=== PATIENT | male | born 1995 | race Two or more races ===

== ENCOUNTER 2021-08-13 21:45 | Emergency (ER) | payer SELFPAY ==
[~2021-08-13] VITALS: Ht 170.2 cm; Wt 86.4 kg
[2021-08-13 22:23] LABS: BASO # 0.1 x10^3/uL (0.0-0.2); BASO % 1 % (0-3); EOS % 0 % (0-3); HEMATOCRIT 43.1 % (39.0-53.0); HEMOGLOBIN 14.5 g/dL (13.0-17.5); LYMPH # 1.3 x10^3/uL (1.0-4.8); LYMPH % 7 % (24-48); MEAN CORPUSCULAR HEMOGLOBIN 31 pg (25-35); MEAN CORPUSCULAR HGB CONC 34 g/dL (31-37); MEAN CORPUSCULAR VOLUME 93 fL (79-100); MONO # 0.7 x10^3/uL (0.0-1.1); MONO % 4 % (0-9); NEUT # 16.3 x10^3/uL (1.8-7.7); NEUT % 89 % (31-73); PLATELET COUNT 319 x10^3/uL (140-400); RED BLOOD COUNT 4.66 x10^6/uL (4.30-5.70); RED CELL DISTRIBUTION WIDTH 13.2 % (11.5-14.5); WHITE BLOOD COUNT 18.5 x10^3/uL (4.0-11.0)
[2021-08-13] MEDS ORDERED: fentaNYL PF VIAL 100 MCG/2 ML VIAL IVP ONE (22:30)
[2021-08-13] MEDS ORDERED: ONDANSETRON PF 4 MG/2 ML VIAL. IVP ONE (22:30)
[2021-08-13 22:35] LABS: CALCIUM 9.2 mg/dL (8.5-10.1); POTASSIUM 3.8 mmol/L (3.5-5.1)
[2021-08-13 22:41] LABS: ALBUMIN 3.8 g/dL (3.4-5.0); ALBUMIN/GLOBULIN RATIO 0.9 (1.0-1.7); TOTAL BILIRUBIN 0.3 mg/dL (0.2-1.0); TOTAL PROTEIN 8.1 g/dL (6.4-8.2)
[2021-08-13 23:07] LABS: BACTERIA,URINE 0 /HPF (0-FEW); RBC,URINE 0 /HPF (0-2); WBC,URINE 20-40 /HPF (0-4)
[2021-08-13] MEDS ORDERED: HYDROmorphone 2 MG/ML INJ. IVP ONE (23:30)
--- NOTE | 2021-08-14 00:18 | RAD ---
Scrotal ultrasound: Reason for examination: Left testicular pain and swelling. Torsion study. The right testicle measures 4.6 x 1.9 x 3.1 cm in greatest dimension. There appears to be normal vasc ular flow. No focal lesions are seen. No abnormality seen at the right epididymis. The left testicle measures 5.0 x 2.1 x 3.1 cm in greatest dimension. This appears to be homogeneous b ut does appear to show some increased vascularity. The left epididymis also appears be prominent at 1 .1 cm with increased vascular flow. No significant hydrocele is evident. IMPRESSION: Increased blood flow present at the left testicle and epididymis suggesting possible epididymitis and orchitis. Electronically signed by: Bhakti Renee MD (08/14/2021 12:15 AM) JOSSELYN
[2021-08-14] MEDS ORDERED: HYDROmorphone 2 MG/ML INJ. IVP ONE (00:30)
[2021-08-14] MEDS ORDERED: cefTRIAXone IV Push 1 GM VIAL. IVP ONE (00:30)
[2021-08-14] MEDS ORDERED: DOXY100C3 PO (01:29)
--- NOTE | 2021-08-14 01:29 | PHYS DOC ---
Past Medical History Past Surgical History: No Surgical History Smoking Status: Current Every Day Smoker Alcohol Use: Occasionally General Adult EDM: Chief Complaint: TESTICULAR PAIN OR INJURY HPI: HPI: Patient is a 26-year-old male who presents to the emergency department with chief complaint of severe left testicular pain. Patient reports he has had mild pain to this testicle over the past week, noticed this morning his pain elevated from a 2-3 out of 10 up to a 10 out of 10. Has been unable to get comfortable all day. States he did take Tylenol about an hour ago without any relief in pain. Patient denies burning with urination, denies seeing blood in his urine, denies urinary pressure, increased urinary frequency, hematuria or other dysuria. Patient denies nausea, vomiting, or diarrhea. Patient denies rashes or lesions to his genitals. Patient reports he does have unprotected sex with a single female sex partner. Patient denies his sex partner complaining of vaginal discharge or other STI type complaints. Patient denies traumatic injury to his testicles. Patient denies other physical complaints or physical marisel rns. Review of Systems: Review of Systems: 14 body systems of review of systems have been reviewed. See HPI for pertinent positives and negative responses, otherwise all other systems are negative, nonpertinent or noncontributory. Constitutional: Negative except as outlined in HPI above. Skin: Negative except as outlined in HPI above. Eyes: Negative except as outlined in HPI above. HENT: Negative except as outlined in HPI above. Respiratory: Negative except as outlined in HPI above. Cardiovascular: Negative except as outlined in HPI above. GI: Negative except as outlined in HPI above. : Negative except as outlined in HPI above. Musculoskeletal: Negative except as outlined in HPI above. Integument: Negative except as outlined in HPI above. Neurologic: Negative except as outlined in HPI above. Endocrine: Negative except as outlined in HPI above. Lymphatic: Negative except as outlined in HPI above. Psychiatric: Negative except as outlined in HPI above. Heart Score: C/O Chest Pain: No Risk Factors: Risk Factors: DM, Current or recent (<one month) smoker, HTN, HLP, family his tory of CAD, obesity. Risk Scores: Score 0 - 3: 2.5% MACE over next 6 weeks - Discharge Home Score 4 - 6: 20.3% MACE over next 6 weeks - Admit for Clinical Observation Score 7 - 10: 72.7% MACE over next 6 weeks - Early Invasive Strategies Current Medications: Current Medications Medications (Trade) Dose Ordered Sig/Raquel Start Time Stop Time Status Last Admin Dose Admin Ceftriaxone Sodium (Rocephin) 1 gm 1X ONCE 08/14/21 00:30 08/14/21 00:31 DC Fentanyl Citrate (Fentanyl 2ml Vial) 75 mcg 1X ONCE 08/13/21 22:30 08/13/21 22:31 DC 08/13/21 22:26 75 MCG Hydromorphone HCl (Dilaudid) 1 mg 1X ONCE 08/14/21 00:30 08/14/21 00:31 DC Ondansetron HCl (Zofran) 4 mg 1X ONCE 08/13/21 22:30 08/13/21 22:31 DC 08/13/21 22:25 4 MG Allergies: Allergies: Allergies Coded Allergies Type Severity Reaction Last Updated Verified No Known Drug Allergies 08/13/21 No Physical Exam: PE: Constitutional: Well developed, well nourished, non-toxic appearance. Patient appears in severe distress, writhing around in the bed. The patient is not diaphoretic. HENT: Normocephalic, atraumatic. Eyes: Conjunctiva normal, no discharge. Neck: Normal range of motion. Cardiovascular: Distal cap refill less than 2 seconds, no cyanosis appreciated. Lungs & Thorax: Patient is in no respiratory distress, no adventitious lung sounds appreciated. Abdomen: Bowel sounds normal, soft, no tenderness, no masses, no pulsatile masses. No bruising or skin discoloration of the abdomen. Skin: Warm, dry, no erythema, no rash. Back: No tenderness, no CVA tenderness. Extremities: No tenderness, no cyanosis, no clubbing, ROM intact, no edema. Neurologic: Alert and oriented X 3, normal motor function, normal sensory function, no focal deficits noted. Psychologic: Affect normal, judgement normal, mood normal. : Genital exam performed with female nurse at bedside for automatic beam warper tender, there are no rashes or lesions to the patient's scrotum or penis, the patient is circumcised, there is no penile discharge, no abnormalities noted with palpation of the right testicle, severe pain to light palpation or support of the left testicle, the cremasteric reflex is negative. There is no scrotal swelling, the left testicle is larger than the right testicle. Unable to palpate epididymis related to patient's pain level. Current Patient Data: Labs: Laboratory Tests Test 08/13/21 22:10 08/13/21 22:28 08/14/21 00:05 White Blood Count 18.5 x10^3/uL (4.0-11.0) H Red Blood Count 4.66 x10^6/uL (4.30-5.70) Hemoglobin 14.5 g/dL (13.0-17.5) Hematocrit 43.1 % (39.0-53.0) Mean Corpuscular Volume 93 fL (79-100) Mean Corpuscular Hemoglobin 31 pg (25-35) Mean Corpuscular Hemoglobin Concent 34 g/dL (31-37) Red Cell Distribution Width 13.2 % (11.5-14.5) Platelet Count 319 x10^3/uL (140-400) Neutrophils (%) (Auto) 89 % (31-73) H Lymphocytes (%) (Auto) 7 % (24-48) L Monocytes (%) (Auto) 4 % (0-9) Eosinophils (%) (Auto) 0 % (0-3) Basophils (%) (Auto) 1 % (0-3) Neutrophils # (Auto) 16.3 x10^3/uL (1.8-7.7) H Lymphocytes # (Auto) 1.3 x10^3/uL (1.0-4.8) Monocytes # (Auto) 0.7 x10^3/uL (0.0-1.1) Eosinophils # (Auto) 0.0 x10^3/uL (0.0-0.7) Basophils # (Auto) 0.1 x10^3/uL (0.0-0.2) Sodium Level 138 mmol/L (136-145) Potassium Level 3.8 mmol/L (3.5-5.1) Chloride Level 102 mmol/L (98-107) Carbon Dioxide Level 24 mmol/L (21-32) Anion Gap 12 (6-14) Blood Urea Nitrogen 10 mg/dL (8-26) Creatinine 1.0 mg/dL (0.7-1.3) Estimated GFR (Cockcroft-Gault) 91.0 BUN/Creatinine Ratio 10 (6-20) Glucose Level 106 mg/dL (70-99) H Calcium Level 9.2 mg/dL (8.5-10.1) Total Bilirubin 0.3 mg/dL (0.2-1.0) Aspartate Amino Transferase (AST) 15 U/L (15-37) Alanine Aminotransferase (ALT) 28 U/L (16-63) Alkaline Phosphatase 94 U/L (46-116) Total Protein 8.1 g/dL (6.4-8.2) Albumin 3.8 g/dL (3.4-5.0) Albumin/Globulin Ratio 0.9 (1.0-1.7) L Urine Collection Type Unknown Urine Color (Auto) Light yellow Urine Turbidity Clear Urine pH (Auto) 7.5 (<5.0-8.0) Urine Specific [place] 1.018 (1.000-1.030) Urine Protein (Auto) Negative mg/dL (Negative) Urine Glucose (Auto)(UA) Negative mg/dL (Negative) Urine Ketones (Auto) Negative mg/dL (Negative) Urine Blood (Auto) Negative (Negative) Urine Nitrite Negative (Negative) Urine Bilirubin (Auto) Negative (Negative) Urine Urobilinogen (Auto) Normal mg/dL (Normal) Urine Leukocyte Esterase (Auto) Moderate (Negative) Urine RBC 0 /HPF (0-2) Urine WBC 20-40 /HPF (0-4) Urine Squamous Epithelial Cells Occ /LPF Urine Bacteria 0 /HPF (0-FEW) Urine Mucus Slight /LPF Lactic Acid Level 0.7 mmol/L (0.4-2.0) Laboratory Tests 08/13/21 22:10 Laboratory Tests 08/13/21 22:10 Vital Signs: Vital Signs Date Time Temp Pulse Resp B/P (MAP) Pulse Ox O2 Delivery O2 Flow Rate FiO2 08/13/21 23:24 Room Air 08/13/21 22:26 26 100 08/13/21 21:50 97.7 112 137/86 (103) 97.7 EKG: EKG: [] Radiology/Procedures: Radiology/Procedures: REASON: Left testicular pain and swelling, torsion study PROCEDURE: TESTICULAR/SCROTUM Scrotal ultrasound: Reason for examination: Left testicular pain and swelling. Torsion study. The right testicle measures 4.6 x 1.9 x 3.1 cm in greatest dimension. There appears to be normal vascular flow. No focal lesions are seen. No abnormality seen at the right epididymis. The left testicle measures 5.0 x 2.1 x 3.1 cm in greatest dimension. This appears to be homogeneous but does appear to show some increased vascularity. The left epididymis also appears be prominent at 1.1 cm with increased vascular flow. No significant hydrocele is evident. IMPRESSION: Increased blood flow present at the left testicle and epididymis suggesting possible epididymitis and orchitis. Electronically signed by: Bhakti Renee MD (08/14/2021 12:15 AM) NABILA Course & Med Decision Making: Course & Med Decision Making Pertinent Labs and Imaging studies reviewed. (See chart for details) 26-year-old male, vital signs reviewed, presents to the emergency department concerning severe left testicular pain. Physical examination concerning for testicular torsion versus epididymitis/orchitis. Will order urinalysis assay, testicular/scrotal ultrasound, IV fentanyl for pain, prophylactic Zofran. CBC, CMP, saline lock. Patient unable to tolerate testicular ultrasound, added 1 mg Dilaudid IV for pain. The patient's white blood cell count is elevated 18.5. Will order lactic acid. The patient's chemistries are negative. The patient's urine did show moderate leukocyte Estrace, there is no hematuria or urine nitrites, 20-40 urine white blood cells, no urine bacteria present. Will prophylactically treat with IV Rocephin, doxycycline p.o. regimen. Scrotal/testicular ultrasound consistent with epididymitis versus orchitis, this is consistent with patient's presentation. Discussed all findings with patient, antibiotic regimen, discussed doxycycline p.o. regimen and side effects, will give prescription for pain medications, strict follow-up with primary care soon, will give referral to urologist. Discussed return to ER precautions and concerns, refrain from sex until symptoms resolve and after antibiotic regimen, discussed with patient consider having partner treated for gonorrhea/chlamydia. Patient gave verbal understanding of and is amenable to ED discharge planning. Discussed with the patient all findings and diagnostic testing as well as the need to follow-up with their primary care provider for further evaluation and treatment or return to the ED if any new or worsening symptoms. Strict return precautions were also discussed at length, the patient voiced understanding and agreement with the discharge planning. The patient was nontoxic in appearance, in no apparent distress, and hemodynamically stable at the time of disposition. Dragon Disclaimer: Dragon Disclaimer: This electronic medical record was generated, in whole or in part, using a voice recognition dictation system. Departure Departure Impression: Primary Impression: Orchitis and epididymitis Disposition: HOME / SELF CARE / HOMELESS Condition: GOOD Referrals: DENNYS BENNETT MD Patient Instructions: Epididymitis, Orchitis Additional Instructions: You were seen today in the emergency department for testicular pain of the left testicle. An ultrasound did reveal an epididymitis and orchitis. As we discussed you were treated with pain medications, 1 g Rocephin IV was given, I am prescribing you doxycycline that you will take twice a day for the next 10 days. Please refrain from sexual activity until all symptoms have resolved, do not have sex until after the antibiotic regimen is completed. I have attached information for a urologist to follow-up with Dr. BENNETT, please make an appointment to see soon if symptoms continue. I have also attached a list of [facility] healthcare providers and clinics free to establish primary care with. As we discussed please consider having your sexual partner treated for gonorrhea/chlamydia. Thank you for visiting our Emergency Department. It was a pleasure taking care of you today in the emergency department and we appreciate you trusting us with your care. If any additional problems come up don't hesita te to return to visit us. Please follow up with your primary care provider so they can plan additional care if needed and know about the problem that you had. If symptoms worsen come back to the Emergency Department. Any concerning symptoms that start such as chest pain, shortness of air, weakness or numbness on one side of the body, running high fevers or any other concerning symptoms return to the ER. [facility] [place] [address] [place] [address] [facility] [address] [place] [address] [facility] [address] [facility] [place] [address] [facility] [address] [place] [address] [facility] [address] [place] [address] Lavelle West [address] [place] [address] [place] [address] Lavellel[address] Dhaliwal [address] [place] [address] [facility] [address] [place] [address] [facility] [address] [place] [address] [facility] [address] [place] [address] Scripts Hydrocodone Bit/Acetaminophen (HYDROCODONE-APAP 5-325 ) 1 Tab Tablet 1 TAB PO PRN Q6HRS PRN for PAIN, #20 TAB 0 Refills Prov: SHANT EASTMAN ALTERATION SPECIALIST 08/14/21 Doxycycline Hyclate (DOXYCYCLINE HYCLATE) 100 Mg Capsule 1 CAP PO BID for orchitis, #20 CAP 0 Refills Prov: SHANT EASTMAN APRN 08/14/21 SHANT EASTMAN APRN August 14, 2021 01:29
[2021-08-14] MEDS ORDERED: HYDR-2761 PO (01:47)
== END 2021-08-14 02:02 | disposition home or self-care (01) ==
LOC: ER 21:45
DX: N45.3 Epididymo-orchitis (principal); F17.200 Nicotine dependence, unspecified, uncomplicated
CPT/HCPCS: 36415; 76870; 80053; 81001; 83605; 85025; 87086; 87491; 87591; 96374; 96375; 96376; 99285; J0696; J1170; J2405; J3010